=== PATIENT | male | born 1955 | race Caucasian/White ===

== ENCOUNTER 2023-02-27 10:12 | Outpatient (CLI) | payer MEDICARE, SELFPAY ==
--- NOTE | ~2023-02-27 | CT_ITS ---
CT of the Abdomen and Pelvis: Indication: Hematuria Technique: 2.5 mm axial scans were obtained through the abdomen and pelvis prior to and following in travenous administration of 130 cc of Omnipaque 350. Dose reduction technique was used on this scan b y utilizing automated exposure control and iterative reconstruction technique. The dose-length produc t (DLP) was 2075.25 mGy-cm. Findings: Scans through the lung bases are unremarkable. The liver, spleen, pancreas, gallbladder, adrenals and right kidney are within normal limits. Nonobst ructing left renal stones are present, measuring up to 11 mm in diameter. No ureteral stone or hydron ephrosis on either side. No evidence of aortic aneurysm. No lymphadenopathy. No bowel obstruction or bowel wall thickening. There is no evidence to suggest acute appendicitis. Images through the pelvis are mildly degraded by streak artifact from right hip arthroplasty. No defi nite abnormality of the urinary bladder seen. No definite pelvic mass seen. No ascites. Impression: Left nephrolithiasis, as above. Suboptimal evaluation of urinary bladder due to streak artifact from right hip arthroplasty. Reviewed, dictated and finalized at [facility]. [employer] Impression: Left nephrolithiasis, as above. Suboptimal evaluation of urinary bladder due to streak artifact from right hip arthroplasty.
[2023-02-27 10:29] LABS: Estimated Glomerular Filt Rate > 60
== END 2023-02-27 10:13 ==
LOC: MICIMG 10:13
PROVIDERS: PCP Clinical Nurse Specialist; Visit Provider Clinical Nurse Specialist
DX: R31.0 Gross hematuria (principal); N20.0 Calculus of kidney
CPT/HCPCS: 74178; Q9967